=== PATIENT | female | born 1965 | race Caucasian/White ===

== ENCOUNTER 2024-01-06 20:05 | Emergency (ER) | payer BC, SELFPAY ==
--- NOTE | ~2024-01-06 | XR_ITS ---
XR tibia fibula RT 2V DATE: 01/06/2024 20:57 INDICATION: Cast pain TECHNIQUE: AP, lateral views COMPARISON: None FINDINGS: No fracture, dislocation, periosteal reaction or bone destruction. Normal alignment at the knee and ankle joints. IMPRESSION: Negative Reviewed, dictated and finalized at location J. IMPRESSION: Negative
[2024-01-06 20:07] VITALS: BP 147/84; PULSE 68; RESP 17; TEMP 36.7; O2SAT 95
--- NOTE | 2024-01-06 21:26 | ED_ITS ---
HPI - General Adult General Chief complaint: Extremity Injury, Lower Stated complaint: right knee Time Seen by Provider: 01/06/24 20:13 History of Present Illness HPI narrative: 58-year-old female presenting with garcia pain. She kicked a pipe in her house and now has a bruise over her garcia. No other injuries. Related Data Allergies Allergy/AdvReac Type Severity Reaction Status Date / Time codeine Allergy Other Verified 01/06/24 20:11 Exam Narrative: APPEARANCE: No apparent distress. Head: atraumatic. EYES: EOMI, NOSE: Atraumatic NECK: Trachea midline RESPIRATORY: No increased rate of breathing CARDIOVASCULAR: RRR, ABDOMINAL: Non-distended MUSCULOSKELETAL: Patient has a small area of swelling over the lower garcia, no breaks in skin no crepitus NEURO: Alert. Moving 4/4 extremities SKIN:: Warm, dry. Normal color PSYCHIATRIC: Normal affect Course Vital Signs Vital signs: Vital Signs Temperature 98.0 F 01/06/24 20:07 Pulse Rate 68 01/06/24 20:07 Respiratory Rate 17 01/06/24 20:07 Blood Pressure 147/84 H 01/06/24 20:07 Pulse Oximetry 95 01/06/24 20:07 Oxygen Delivery Room Air 01/06/24 20:07 Temperature 98.0 F 01/06/24 20:07 Pulse Rate 68 01/06/24 20:07 Respiratory Rate 17 01/06/24 20:07 Blood Pressure 147/84 H 01/06/24 20:07 Pulse Oximetry 95 01/06/24 20:07 Oxygen Delivery Room Air 01/06/24 20:07 Medical Decision Making [facility] Narrative Medical decision making narrative: -Course: 58-year-old presenting with small hematoma in her garcia after kicking pipe. X-rays negative for fracture. Patient declined Motrin Tylenol. Patient discharged. Vital Signs Vital Signs: Vital Signs Temperature 98.0 F 01/06/24 20:07 Pulse Rate 68 01/06/24 20:07 Respiratory Rate 17 01/06/24 20:07 Blood Pressure 147/84 H 01/06/24 20:07 Pulse Oximetry 95 01/06/24 20:07 Oxygen Delivery Room Air 01/06/24 20:07 Temperature 98.0 F 01/06/24 20:07 Pulse Rate 68 01/06/24 20:07 Respiratory Rate 17 01/06/24 20:07 Blood Pressure 147/84 H 01/06/24 20:07 Pulse Oximetry 95 01/06/24 20:07 Oxygen Delivery Room Air 01/06/24 20:07 Discharge Plan Discharge Clinical Impression: Pain in garcia Patient Disposition: Home, Self-Care Condition: Stable Instructions: Antibiotic Form, Hematoma (ED) Additional Instructions: Please use Motrin Tylenol as needed for pain. Follow-up with your primary care physician Follow-up/Referrals: UNKNOWN,DOCTOR [Primary Care Provider] -
[2024-01-06 21:30] VITALS: BP 139/84; PULSE 62; RESP 20; TEMP 36.7; O2SAT 98
== END 2024-01-06 21:36 | disposition home or self-care (01) ==
PROVIDERS: Emergency Provider Emergency Medicine
DX: S80.11XA Contusion of right lower leg, initial encounter (principal); W22.8XXA Striking against or struck by other objects, initial encounter
CPT/HCPCS: 73590; 99283